=== PATIENT | male | born 1985 | race Caucasian/White ===

== ENCOUNTER 2017-04-12 21:53 | Emergency (ER) | payer SELFPAY ==
[~2017-04-12] VITALS: Ht 185.4 cm; Wt 99.8 kg
== END 2017-04-13 00:45 | disposition home or self-care (01) ==
LOC: ED 21:53
DX: S05.02XA Injury of conjunctiva and corneal abrasion without foreign body, left eye, initial encounter (principal); F17.200 Nicotine dependence, unspecified, uncomplicated; X58.XXXA Exposure to other specified factors, initial encounter; Y93.89 Activity, other specified; Y92.69 Other specified industrial and construction area as the place of occurrence of the external cause; Y99.0 Civilian activity done for income or pay